=== PATIENT | female | born 1945 | race Caucasian/White ===

== ENCOUNTER → 2016-07-31 | Outpatient (REF) ==
[~2016-07-31] MED LIST: AMOXICILLIN 50500 MG PO; BENADRYL25 M2 PO; CITRACAL + D CA1 TAB PO; HCTZ12.5TAB PO; PROAIR HFA0.09 MG/AC IH; SINGULAIR 110 MG/TAB PO
== END ==
LOC: ZLAB.WCH 18:07
DX: Z01.89 Encounter for other specified special examinations (principal)

== ENCOUNTER → 2016-08-14 | Outpatient (CLI) | payer MEDICARE, BC ==
[~2016-08-14] VITALS: Ht 157.5 cm; Wt 83.1 kg
[2016-08-14 14:14] VITALS: BP 136/72; PULSE 79; TEMP 98.2
== END ==
LOC: EUO 13:41
DX: M81.0 Age-related osteoporosis without current pathological fracture (principal)
CPT/HCPCS: J3489

== ENCOUNTER → 2016-08-31 | Outpatient (CLI) | payer MEDICARE, BC | LOC: MC.RAD 15:08 | DX: Z12.31 Encounter for screening mammogram for malignant neoplasm of breast (principal) ==

== ENCOUNTER → 2017-10-11 | Outpatient (REF) | LOC: ZLAB.WCH 14:35 | DX: Z01.89 Encounter for other specified special examinations (principal) ==

== ENCOUNTER → 2017-10-29 | Outpatient (CLI) | payer MEDICARE, BC | LOC: MC.RAD 10:59 | DX: Z12.31 Encounter for screening mammogram for malignant neoplasm of breast (principal) ==

== ENCOUNTER 2018-04-17 10:49 | Inpatient (IN) | payer MEDICARE, BC ==
[~2018-04-17] VITALS: Ht 162.6 cm; Wt 80.2 kg
[2018-04-17 11:38] LABS: BASO # 0.1 (0.0-0.2); BASO % 0.4 % (0.0-2.0); EOS % 0.1 % (0-4.0); GRAN # 14.6 (1.4-6.5); GRAN % 85.5 % (42.2-75.2); HEMATOCRIT 46.8 % (37.0-47.0); HEMOGLOBIN 16.3 g/dl (12.5-16.0); LYMPH # 1.6 (1.2-3.4); LYMPH % 9.5 % (20.0-51.0); MEAN CELL VOLUME 92 fl (80.0-100.0); MEAN CORPUSCULAR HEMOGLOBIN 32 pg (27.0-31.0); MEAN CORPUSCULAR HGB CONC 35 g/dl (33.0-37.0); MEAN PLATELET VOLUME 11.2 fl (7.4-10.4); MONO # 0.7 (0.1-0.6); PLATELET COUNT 191 K/mm3 (130-400); REDCELL DISTRIBUTION WIDTH-CV 11.9 % (11.5-14.5)
[2018-04-17 11:43] LABS: INR 1.2 (0.8-3.0); PROTHROMBIN TIME 13.5 SECONDS (9.7-12.8)
[2018-04-17 11:54] LABS: ALBUMIN 3.8 gm/dL (3.5-5.0); BILIRUBIN,TOTAL 1.8 mg/dL (0.0-1.0); CALCIUM 9.3 mg/dL (8.4-10.2); CREATININE, serum 0.53 mg/dL (0.52-1.25); POTASSIUM 3.2 mmol/L (3.4-5.0); TOTAL PROTEIN 6.8 gm/dL (6.4-8.2)
[2018-04-17 12:05] LABS: C-REACTIVE PROTEIN 14.9 mg/dL (0.0-0.9)
[2018-04-17] MEDS ORDERED: ULTRAM 50MG TAB50 MG PO (14:57)
[2018-04-17] MEDS ORDERED: ERGOCALCIFER50000 IU PO (14:58)
--- NOTE | 2018-04-17 15:15 | NUR ---
Pt arrived to room 352 via stretcher with WARREN Figueroa. Pt able to transfer from the stretcher to the floor bed without difficulty. Pt oriented to room and call light system. Will complete assessment. Pt is resting quietly in the bed and she denies further needs. Call light within reach, will continue to monitor.
[2018-04-17 15:54] VITALS: BP 113/92; PULSE 87; TEMP 98.9
--- NOTE | 2018-04-17 15:55 | NUR ---
Assessment complete. Pt is AXO X3, states she has pain in her LLE rated at a 5/10. Breathing is even and unlabored on room air. LH INT flushes easily, remains free of complications, and is CDI. LLE marked with sharpie around cellulitis for reference. Pt is sitting up in the bed resting quietly at this time and she denies further needs. Call light within reach, will continue to monitor.
[2018-04-17 16:03] LABS: COLLECTION METHOD CLEAN CATCH
[2018-04-17 16:26] LABS: AMORPHOUS CRYSTAL Present /uL; MUCOUS Present /lpf; PH 5 (5-8); URINE APPEARANCE Cloudy; URINE BACTERIA None Seen /hpf; URINE BILIRUBIN Negative (NEGATIVE); URINE BLOOD 2+ (NEGATIVE); URINE COLOR Amber; URINE GLUCOSE Negative (NEGATIVE); URINE KETONE 1+ (NEGATIVE); URINE LEUKOCYTE ESTERASE Negative (NEGATIVE); URINE NITRATE Negative (NEGATIVE); URINE PROTEIN(semi-quant) Negative (NEGATIVE); URINE UROBILINOGEN Negative (NEGATIVE)
--- NOTE | 2018-04-17 19:21 | NUR ---
Since arriving to the floor the pt has been resting on and off. She has had intermittent pain in her LLE. Pt's daughter is at the bedside; all questions answered. Pt is sitting up in the bed watching TV at this time and she denies further needs. Call light within reach. Report given to WARREN Lara.
[2018-04-17 20:30] VITALS: BP 136/62; PULSE 90; TEMP 98.9
[2018-04-18] VITALS (7 sets, daily range): BP systolic 116–143; BP diastolic 51–67; PULSE 78–94; TEMP 97.4–100.5
--- NOTE | 2018-04-18 05:00 | NUR ---
PT RECIEVED VANOMYCIN ORDERED THIS HS WITHOUT ISSUE. PT WAS UP LATE IN THE NOC, AROUND 0100 WENT TO SLEEP. PT CALLED THIS NURSE ABOUT 0300AM WITH C/O "RASH FEELING" TO NECK, FACE AND LIPS. NO BENDRYL PRN MEDS, CALLED DIANNE VIDES AND RECIEVED PRN ORDER. ADMINISTERED MED. PT WAS ABLE TO SWALLOW PO BENADRYL WITHOUT ISSUE. STATED THAT SHE WAS MOSTLY WORRIED ABOUT THE POSSIBLITY OF HER THROAT SWELLING UP AND NOT BEING ABLE TO BREATHE. THIS NURSE ASSESSED APPERANCE OF PT FACE MOUTH AND THROAT AND SAW NO VISUAL CHANGES TO SKIN. PT STATED THE AREA FELT TINGLY AND LIKE IT WAS SWELLING. AFTER BENADRYL WAS ADMINSITERED PT STATED SHE FELT SOME RELIEF AFTER APPROX 10-15 AFTER TAKING THE PO MED.
[2018-04-18 07:13] LABS: BASO % 0.2 % (0.0-2.0); GRAN # 8.4 (1.4-6.5); GRAN % 70.4 % (42.2-75.2); HEMATOCRIT 42.3 % (37.0-47.0); LYMPH # 2.4 (1.2-3.4); LYMPH % 20.5 % (20.0-51.0); MEAN CELL VOLUME 95 fl (80.0-100.0); MEAN CORPUSCULAR HEMOGLOBIN 32 pg (27.0-31.0); MEAN CORPUSCULAR HGB CONC 33 g/dl (33.0-37.0); MEAN PLATELET VOLUME 11.3 fl (7.4-10.4); MONO % 8.2 % (1.7-9.3); PLATELET COUNT 152 K/mm3 (130-400); RED BLOOD COUNT 4.46 M/mm3 (4.10-5.30)
[2018-04-18 07:17] LABS: HEMOGLOBIN 14.1 g/dl (12.5-16.0)
[2018-04-18 07:24] LABS: BILIRUBIN,TOTAL 1.2 mg/dL (0.0-1.0); CALCIUM 8.2 mg/dL (8.4-10.2); CREATININE, serum 0.49 mg/dL (0.52-1.25); POTASSIUM 3.4 mmol/L (3.4-5.0); TOTAL PROTEIN 5.8 gm/dL (6.4-8.2)
--- NOTE | 2018-04-18 07:25 | NUR ---
PT HAD REQUESTED ANOTHER BENADRYL THIS AM. STATED SHE FELT LIKE SHE WANTED TO BE ON THE SAFE SIDE AND TAKE ONE TO NO HAVE ANY MORE REACTION. NO OTHER ISSUES OR CONSERNS VOIDED AT THIS TIME.
--- NOTE | 2018-04-18 07:45 | NUR ---
Assessment complete. Pt is AXO X3, states she has pain in her LLE rated at a 3/10. Breathing is even and unlabored on room air. LH infusing, remains free of complications, and is CDI. Pt is sitting up in the bed reading her book at this time and she denies further needs. Call light within reach, will continue to monitor.
--- NOTE | 2018-04-18 13:16 | NUR ---
Initial visit; Patient and her family were receptive to Bike Assembler looking in on Luanne and wishing her well.
--- NOTE | 2018-04-18 15:33 | NUR ---
YASIR and SW student met with the patient to discuss discharge plan. The patient lives in [place] with her , Fredi. She reports independence with ADLs and has a cane. The patient's PCP is Dr. Jose Dunn and she receives her medications at the [facility]. She reports no difficulties obtaining her meds. The patient does not have advanced directives, but she was interested in obtaining the form for DPOA-HC. SW provided. The patient plans to return home with her upon discharge. No additional needs at this time.
--- NOTE | 2018-04-18 19:15 | NUR ---
Pt has been resting on and off throughout the day. She has had constant pain in her LLE. Pt's family has been at the bedside; all questions answered. Pt is sitting up in the bed eating her dinner at this time and she denies further needs. Call light within reach. Report given to WARREN Lara.
[2018-04-19 01:18] VITALS: BP 145/70; PULSE 77; TEMP 97.8
[2018-04-19 05:58] VITALS: BP 163/70; PULSE 79; TEMP 98.3
--- NOTE | 2018-04-19 06:00 | NUR ---
PT HAD NO ISSUES ON CONSERNS OVER NOC. APPEARED TO HAVE RESTED WELL. NO NEED FOR ANY PRNS AND NO C/O ITCHING OR OF "RASH FEELING" TONIGHT.
[2018-04-19 07:57] VITALS: BP 156/80; PULSE 80; TEMP 98.3
[2018-04-19 07:59] LABS: BASO % 0.1 % (0.0-2.0); GRAN # 5.8 (1.4-6.5); GRAN % 73.1 % (42.2-75.2); HEMOGLOBIN 13.2 g/dl (12.5-16.0); LYMPH # 1.4 (1.2-3.4); LYMPH % 17.1 % (20.0-51.0); MEAN CELL VOLUME 95 fl (80.0-100.0); MEAN CORPUSCULAR HEMOGLOBIN 31 pg (27.0-31.0); MEAN CORPUSCULAR HGB CONC 33 g/dl (33.0-37.0); MEAN PLATELET VOLUME 11.6 fl (7.4-10.4); MONO # 0.7 (0.1-0.6); MONO % 9.1 % (1.7-9.3); PLATELET COUNT 139 K/mm3 (130-400); REDCELL DISTRIBUTION WIDTH-CV 12.2 % (11.5-14.5)
[2018-04-19 08:14] LABS: CALCIUM 8.8 mg/dL (8.4-10.2); CREATININE, serum 0.45 mg/dL (0.52-1.25); MAGNESIUM 1.8 mg/dL (1.6-2.3)
--- NOTE | 2018-04-19 09:00 | NUR ---
Assessment complete. Pt is AXO X3, states she has pain in her LLE rated at a 4/10. Breathing is even and unlabored on room air. LH INT flushes easily, remains free of complications, and is CDI. Pt worked with PT this morning and is now sitting up in the chair. She denies further needs. Call light within reach, will continue to monitor.
[2018-04-19 11:32] VITALS: BP 155/71; PULSE 76; TEMP 98.1
[2018-04-19 16:11] VITALS: BP 167/84; PULSE 79; TEMP 98.8
--- NOTE | 2018-04-19 18:01 | NUR ---
Pt has been resting on and off throughout the day. She has had a constant pain in her LLE. She took a shower this afternoon and states she feels much better. Pt's family members have been at the bedside; all questions answered. Pt is sitting up in the bed waiting for her dinner to arrive at this time and she denies further needs. Call light within reach.
--- NOTE | 2018-04-19 19:15 | NUR ---
Report received by Mao KELLEY. Pt sitting in recliner with legs elevated and spouce at bedside.
--- NOTE | 2018-04-19 19:47 | NUR ---
Report given to WARREN Bennett.
[2018-04-19 20:11] VITALS: BP 174/72; PULSE 77; TEMP 98.8
--- NOTE | 2018-04-19 22:00 | NUR ---
Pt assessment complete. Pt resting in bed at this time with legs elevated reading a book. Denies any needs at this time. Answers all questions appropriately. Reports this nurse a history of cellulitis although prior occurances had been resolved with PO medications, and nothing "this severe".
[2018-04-20 00:43] VITALS: BP 163/76; PULSE 75; TEMP 98.3
--- NOTE | 2018-04-20 01:30 | NUR ---
Pt was awake when nurse entered room to give PRN medication for elevated BP. Pt reports "snoozing" through out the day that makes it difficult to sleep through out the night. Denies any current needs. Provided education material and discussed swimming pool and cellulitis connections. Encouraged pt to discuss concerns and questions with physician during morning rounds.
[2018-04-20 03:35] VITALS: BP 158/74; PULSE 93; TEMP 97.7
--- NOTE | 2018-04-20 07:00 | NUR ---
Report recieved from WARREN Bennett. Patient resting in bed at this time and assisted to recliner. Vancomycin started by ALISHA RN to patent peripheral RH IV. Patient denies needs at this time. Rates pain to LLE 2/10 and relays that this is tolerable to her. Care assumed.
--- NOTE | 2018-04-20 07:00 | NUR ---
Pt report provided to Brenda KELLEY. Pt resting in bed at this time following use of restroom. Steady gait noted.
[2018-04-20 07:56] LABS: BASO % 0.3 % (0.0-2.0); GRAN # 4.5 (1.4-6.5); GRAN % 59.6 % (42.2-75.2); HEMATOCRIT 39.5 % (37.0-47.0); HEMOGLOBIN 13.2 g/dl (12.5-16.0); MEAN CELL VOLUME 94 fl (80.0-100.0); MEAN CORPUSCULAR HEMOGLOBIN 32 pg (27.0-31.0); MEAN CORPUSCULAR HGB CONC 33 g/dl (33.0-37.0); MEAN PLATELET VOLUME 11.6 fl (7.4-10.4); MONO # 0.9 (0.1-0.6); MONO % 12.3 % (1.7-9.3); PLATELET COUNT 172 K/mm3 (130-400); RED BLOOD COUNT 4.19 M/mm3 (4.10-5.30); REDCELL DISTRIBUTION WIDTH-CV 12.1 % (11.5-14.5)
[2018-04-20 08:03] LABS: ALBUMIN 3.2 gm/dL (3.5-5.0); BILIRUBIN,TOTAL 0.9 mg/dL (0.0-1.0); CREATININE, serum 0.46 mg/dL (0.52-1.25); POTASSIUM 3.9 mmol/L (3.4-5.0); TOTAL PROTEIN 6.2 gm/dL (6.4-8.2)
[2018-04-20 08:55] VITALS: BP 153/66; PULSE 88; TEMP 97.7
[2018-04-20 12:42] VITALS: BP 174/83; PULSE 80; TEMP 97.4
[2018-04-20 16:24] VITALS: BP 171/62; PULSE 86; TEMP 98
[2018-04-20 19:31] VITALS: BP 157/86; PULSE 86; TEMP 97.9
--- NOTE | 2018-04-20 20:31 | NUR ---
Initial shift assessment done- denies pain- left lower extremity looking much better- still some discoloration/edema-but no redness noted. States should go home tomorrow. No requests.
[2018-04-21 00:55] VITALS: BP 146/76; PULSE 82; TEMP 98.3
[2018-04-21 03:54] VITALS: BP 148/79; PULSE 77; TEMP 97.7
--- NOTE | 2018-04-21 05:30 | NUR ---
Quiet night- did have some slight nausea-requested some crackers- relieved symptoms--did sleep just a few hours towards morning- VSS
--- NOTE | 2018-04-21 07:35 | NUR ---
PATIENT ASSESSMENT COMPLETED. LEGS ELEVATED. SHE DOES REPORT HAVING DISCOMFORT TO HER LEFT LEG GREATER WITH GETTING UP ON IT. DENIES OTHER NEEDS AT THIS TIME.
[2018-04-21 08:31] VITALS: BP 160/77; PULSE 78; TEMP 98.2
[2018-04-21 09:19] LABS: BASO % 0.3 % (0.0-2.0); GRAN # 3.4 (1.4-6.5); GRAN % 58.2 % (42.2-75.2); HEMATOCRIT 42.8 % (37.0-47.0); HEMOGLOBIN 14.5 g/dl (12.5-16.0); LYMPH # 1.7 (1.2-3.4); LYMPH % 28.8 % (20.0-51.0); MEAN CELL VOLUME 94 fl (80.0-100.0); MEAN CORPUSCULAR HEMOGLOBIN 32 pg (27.0-31.0); MEAN CORPUSCULAR HGB CONC 34 g/dl (33.0-37.0); MEAN PLATELET VOLUME 11.5 fl (7.4-10.4); MONO # 0.7 (0.1-0.6); MONO % 11.7 % (1.7-9.3); PLATELET COUNT 156 K/mm3 (130-400); RED BLOOD COUNT 4.55 M/mm3 (4.10-5.30); REDCELL DISTRIBUTION WIDTH-CV 12.1 % (11.5-14.5)
[2018-04-21 09:30] LABS: CALCIUM 9.7 mg/dL (8.4-10.2); CREATININE, serum 0.46 mg/dL (0.52-1.25); POTASSIUM 3.6 mmol/L (3.4-5.0)
[2018-04-21 12:17] VITALS: BP 150/78; PULSE 72; TEMP 97.9
[2018-04-21] MEDS ORDERED: CEPHALEXIN500 M1 PO (14:10)
[2018-04-21] MEDS ORDERED: NORVASC 5MG5 MG/TAB PO (14:11)
[2018-04-21] MEDS ORDERED: HCTZ12.5TAB PO (14:11)
--- NOTE | 2018-04-21 16:20 | NUR ---
PATIENT DISCHARGE INSTRUCTIONS GIVEN TO PATIENT
--- NOTE | 2018-04-21 16:55 | NUR ---
PATIENT DISCHARGED TO HOME WITH BELONGINGS VIA WHEELCHAIR. SHE DENIES ANY QUESTIONS ABOUT DISCHARGE. NEW SCRIPTS WERE SENT TO [facility].
== END 2018-04-21 16:55 | disposition home or self-care (01) | DRG 603 ==
LOC: COL.ER 10:49 → MEDICAL 13:11
PROVIDERS: Emergency Medicine; Hospitalist; Physician Assistant; ADMIT Family Medicine
DX: L03.116 Cellulitis of left lower limb (principal); J45.909 Unspecified asthma, uncomplicated; E87.6 Hypokalemia; L50.9 Urticaria, unspecified; I10 Essential (primary) hypertension; M81.0 Age-related osteoporosis without current pathological fracture; M48.00 Spinal stenosis, site unspecified
CPT/HCPCS: 99222-AI; 99232-AI; 99239; J0360; J1170; J1200; J1650; J3370; J3475; J7030; J7050

== ENCOUNTER → 2019-02-21 | Outpatient (CLI) | payer MEDICARE, BC ==
[~2019-02-21] MED LIST changes: +CEPHALEXIN500 M1 PO; +ERGOCALCIFER50000 IU PO; +NORVASC 5MG5 MG/TAB PO; +ULTRAM 50MG TAB50 MG PO
== END ==
LOC: MC.RAD 10:45
DX: Z12.31 Encounter for screening mammogram for malignant neoplasm of breast (principal); M81.0 Age-related osteoporosis without current pathological fracture; I10 Essential (primary) hypertension; L50.9 Urticaria, unspecified

== ENCOUNTER → 2020-07-07 | Outpatient (REF) | LOC: COL.CARD 12:03 | DX: R00.2 Palpitations (principal) ==